=== PATIENT | male | born 1995 | race Caucasian/White ===

== ENCOUNTER 2017-07-15 13:16 | Emergency (ER) ==
[2017-07-15 13:18] VITALS: BP 139/83; TEMP 98.7; BMI 27.3
--- NOTE | 2017-07-15 14:35 | ED.PDOC ---
General ED Provider: Dr. ARDEN CARDOSO Chief Complaint: Abdominal Pain Stated Complaint: Having abdominal cramping and diarrea loose stools for past month. Denies severe pain or nausea-vomiting. Denies bleeding; Denies exposure to unsanitary conditions or no treated water Time Seen by Physician: 14:00 Mode of Arrival: Walk-In Information Source: Patient Exam Limitations: No limitations Nursing and Triage Documentation Reviewed and Agree: Yes Reviewed sepsis parameters & appropriate labs ordered?: Yes System Inflammatory Response Syndrome: Not Applicable Sepsis Protocol: For patient's 13 years and over: Temp is 96.8 and below OR 101 and greater Pulse >90 BPM Resp >20/minute Acutely Altered Mental Status Are patient's symptoms suggestive of a new infection, such as: -Pneumonia -Skin, Soft Tissue -Endocarditis -UTI -Bone, Joint Infection -Implantable Device -Acute Abdominal Infection -Wound Infection -Meningitis -Blood Stream Catheter Infection -Unknown System Inflammatory Response Syndrome: Not Applicable GI Complaint Exam - Vomiting/Diarrhea Complaint/Exam Onset/Duration: 4 weeks Episodes of Diarrhea Over Last 24 Hours: 4 Initial Severity: Severe Current Severity: Moderate Character of Vomiting: Denies: Non-bilious, Bilious, Bloody, Retching Character of Diarrhea: Reports: Watery. Denies: Bloody, Malodorous Aggravating: Reports: None Alleviating: Reports: None Associated Signs and Symptoms: Reports: Cramping. Denies: Dizziness, Light- headedness, Melena, Hematemesis, Fever, Abdominal pain Related History: Denies: Similar episode, Recent antibiotics Non-GI Risk Factors: Reports: None Surgical Obstruction Risk Factors: Reports: None Related Surgical History: Reports: None Abdominal Findings: Present: None Kussmaul Respirations Present: No Differential Diagnoses: Viral Gastroenteritis, Other (Irritable Bowel, Inflamatory Bowel disease) Review of Systems - Review Of Systems Constitutional: Reports: No symptoms Eyes: Reports: No symptoms Ears, Nose, Mouth, Throat: Reports: No symptoms Respiratory: Reports: No symptoms Cardiac: Reports: No symptoms GI: Reports: No symptoms, Diarrhea : Reports: No symptoms Musculoskeletal: Reports: No symptoms Skin: Reports: No symptoms Neurological: Reports: No symptoms Endocrine: Reports: No symptoms Hematologic/Lymphatic: Reports: No symptoms All Other Systems: Reviewed and Negative Past Medical History - Past Medical History Endocrine: Reports: None Cardiovascular: Reports: None Respiratory: Reports: None Hematological: Reports: None Gastrointestinal: Reports: None Genitourinary: Reports: None Neuro/Psych: Reports: None Musculoskeletal: Reports: None Cancer: Reports: None - Surgical History General Surgical History: Reports: None - Family History Family History: Reports: None - Social History Smoking Status: Current every day smoker, Light tobacco smoker Hx Substance Use: No Alcohol Screening: Occasionally - Immunizations Tetanus Shot up to Date: No Physical Exam - Physical Exam Appearance: Well-appearing, No pain distress, Well-nourished Eyes: DILLON, EOMI, Conjunctiva clear ENT: Ears normal, Nose normal, Oropharynx normal Respiratory: Airway patent, Breath sounds clear, Breath sounds equal, Respirations nonlabored Cardiovascular: RRR, Pulses normal, No rub, No murmur GI/: Soft, Nontender, No masses, Bowel sounds normal, No Organomegaly Musculoskeletal: Normal strength, ROM intact, No edema, No calf tenderness Skin: Warm, Dry, Normal color Neurological: Sensation intact, Motor intact, Reflexes intact, Cranial nerves intact, Alert, Oriented Psychiatric: Affect appropriate, Mood appropriate Critical Care Note - Critical Care Note Total Time (mins): 0 Course - Course Hematology/Chemistry: 07/15/17 15:51 07/15/17 15:51 Orders, Labs, Meds: Lab Review 07/15/17 07/15/17 15:51 15:51 WBC 8.02 RBC 5.80 Hgb 17.3 Hct 47.7 MCV 82.2 MCH 29.8 MCHC 36.3 H RDW Coeff of Michael 11.9 Plt Count 196 Immature Gran % (Auto) 0.5 Neut % (Auto) 60.1 Lymph % (Auto) 29.1 [place] % (Auto) 6.6 Eos % (Auto) 3.2 Baso % (Auto) 0.5 Immature Gran # (Auto) 0.0 Neut # (Auto) 4.8 Lymph # (Auto) 2.3 [place] # (Auto) 0.5 Eos # (Auto) 0.3 Baso # (Auto) 0.0 Sodium 140 Potassium 3.7 Chloride 102 Carbon Dioxide 27 Anion Gap 14.7 BUN 14 Creatinine 0.81 Estimated GFR (MDRD) 123.00 BUN/Creatinine Ratio 17.28 Glucose 79 Calcium 9.7 Total Bilirubin 0.5 L AST 19 ALT 61 Alkaline Phosphatase 103 Total Protein 8.1 Albumin 4.5 Globulin 3.6 Albumin/Globulin Ratio 1.25 Orders Category Date Time Status CBC W/ AUTO DIFF Stat LAB 07/15/17 15:51 Completed CMP [COMPREHENSIVE METABOLIC PANEL] Stat LAB 07/15/17 15:51 Completed ABDOMEN, SERIES FLAT & UPRIGHT Stat RADS 07/15/17 15:38 Completed Vital Signs: Temp Pulse Resp BP Pulse Ox 07/15/17 13:16 98.7 F 83 20 139/83 98 Departure - Departure Time of Disposition: 16:20 Disposition: HOME SELF-CARE Discharge Problem: Chronic diarrhea of unknown origin, Abdominal cramping Instructions: Irritable Bowel Syndrome (ED), Acute Diarrhea (ED) Condition: Good Pt referred to PMD for follow-up: Yes IPMP verified?: No Additional Instructions: Monitor diet and observe for correlation to symptoms Make apt with PCP for follow up Prescriptions: Diphenoxylate HCl/Atropine [Lomotil 2.5-0.025 mg Tablet] 1 each PO 1-3XD PRN # 20 tablet PRN Reason: loose stools, cramping Allergies/Adverse Reactions: Allergies No Known Allergies Allergy (Verified 07/15/17 13:18) Home Medications: Ambulatory Orders Diphenoxylate HCl/Atropine [Lomotil 2.5-0.025 mg Tablet] 1 each PO 1-3XD PRN # 20 tablet 07/15/17 Disposition Discussed With: Patient
--- NOTE | 2017-07-15 16:06 | DI ---
Exam: Two x-rays of the abdomen. Comparison: None available. Reason for exam: Diarrhea. FINDINGS: Nonspecific, nonobstructive bowel gas pattern with air seen to the level rectosigmoid. No significant degenerative disease is seen. Impression: Nonspecific, nonobstructive bowel gas pattern.
== END 2017-07-15 16:37 | disposition home or self-care (01) ==
LOC: ED 13:16
DX: K52.9 Noninfective gastroenteritis and colitis, unspecified (principal); R10.9 Unspecified abdominal pain
CPT/HCPCS: 36415; 80053; 85025; 99282